=== PATIENT | female | born 1985 | race Caucasian/White ===

== ENCOUNTER → 2023-07-06 10:59 | Outpatient (REF) | payer OTHER, SELFPAY | LOC: PNTC 10:59 | PROVIDERS: ATTENDING PHYSICIAN Obstetrics & Gynecology | DX: O09.529 Supervision of elderly multigravida, unspecified trimester (principal); O34.219 Maternal care for unspecified type scar from previous cesarean delivery | CPT/HCPCS: 76811; 93976 ==

== ENCOUNTER → 2023-08-31 10:55 | Outpatient (REF) | payer OTHER, SELFPAY | LOC: PNTC 10:55 | PROVIDERS: ATTENDING PHYSICIAN Obstetrics & Gynecology | DX: O09.529 Supervision of elderly multigravida, unspecified trimester (principal); O34.219 Maternal care for unspecified type scar from previous cesarean delivery | CPT/HCPCS: 76816 ==

== ENCOUNTER → 2023-09-14 10:00 | Outpatient (REF) | payer OTHER, SELFPAY ==
--- NOTE | 2023-09-14 10:09 | PN.DIAED06 ---
Meal Plan - Gestational
- Breakfast
Gestational Diabetes Meal Plan Name: 1800 calories
Breakfast - Total Carbohydrate (grams): 30
Breakfast - Starch Carbohydrate: 1
Breakfast - Fruit Carbohydrate: 0
Breakfast - Milk Carbohydrate: 1
Breakfast - Nonstarchy Vegetables: Yes
Breakfast - Meat/Protein: 1
Breakfast - Fat: 2
- Morning Snack
Morning Snack - Total Carbohydrate (grams): 30
Morning Snack - Starch Carbohydrate: 1
Morning Snack - Fruit Carbohydrate: 0
Morning Snack - Milk Carbohydrate: 1
Morning Snack - Nonstarchy Vegetables: Yes
Morning Snack - Meat/Protein: 0.5
Morning Snack - Fat: 0
- Lunch
Lunch - Total Carbohydrate (grams): 45
Lunch - Starch Carbohydrate: 2
Lunch - Fruit Carbohydrate: 1
Lunch - Milk Carbohydrate: 0
Lunch - Nonstarchy Vegetables: Yes
Lunch - Meat/Protein: 2
Lunch - Fat: 1
- Afternoon Snack
Afternoon Snack - Total Carbohydrate (grams): 30
Afternoon Snack - Starch Carbohydrate: 1
Afternoon Snack - Fruit Carbohydrate: 1
Afternoon Snack - Milk Carbohydrate: 0
Afternoon Snack - Nonstarchy Vegetables: Yes
Afternoon Snack - Meat/Protein: 1
Afternoon Snack - Fat: 0
- Dinner
Dinner - Total Carbohydrate (grams): 45
Dinner - Starch Carbohydrate: 2
Dinner - Fruit Carbohydrate: 0
Dinner - Milk Carbohydrate: 1
Dinner - Nonstarchy Vegetables: Yes
Dinner - Meat/Protein: 2
Dinner - Fat: 2
- Evening Snack
Evening Snack - Total Carbohydrate (grams): 30
Evening Snack - Starch Carbohydrate: 1
Evening Snack - Fruit Carbohydrate: 0
Evening Snack - Milk Carbohydrate: 1
Evening Snack - Nonstarchy Vegetables: Yes
Evening Snack - Meat/Protein: 1
Evening Snack - Fat: 1
--- NOTE | 2023-09-14 11:42 | PN.DIAED02 ---
Referral
DSME Class Series Code: GDM
Referred For: Gestational Diabetes Self-Management Training, Management of Diabetes During , Medical Nutrition Therapy, Self-Blood Glucose Monitoring
PHI Release Authorization Form Signed: Yes
Patient Problems:
Current Active Problems
Problem Status Onset
Gestational diabetes mellitus in , unspecified control
Demographic
(1) Gestational diabetes mellitus in , unspecified control
Status: Acute Code(s): O24.419 - Gestational diabetes mellitus in , unspecified control
Patient's primary language-: Setswana
Self-Care
- Tobacco Usage
Do you now, or have you ever smoked?: Never smoked
- Alcohol & Drugs Usage
Drinks Alcohol: No
Uses Recreational Drugs: No
Care Plan
- Education Needs
Patient Education Needs: Nutritional management, Preconception care//gestational diabetes management
Recommended Diabetes Training Program based on assessment: Gestational Diabetes Management
- Plan of Care
Plan of Care:
Met with Ms. Shetty today, , currently at 30 weeks of gestation, here today for medical nutrition therapy.
Rika reports that she has had 2 successful pregnancies without GDM. Explained to Rika glucose metabolism in body and what occurs in the body during to cause increase blood sugar. Discussed importance of keeping BS well controlled
to avoid complications to the baby during and after (macrosomia, hypoglycemia). Explained to her that she is at increased risk of developing T2DM in the future.
Provided with Contour Next Ez glucometer, and instructed on proper testing technique, testing sites and testing pattern. She is aware to test FBS and 2 hr pp each meal. Expected results for FBS <95 mg/dl and 2 hr pp <120 mg/dl. Noted for blood sugar
of 87 2 hrs after breakfast. A Log sheet was provided to her to record glucose results, she will send a 4 day meal log with all her FBG and 2hr Post prandial glucose numbers to this office for review. In addition, she will send all her glucose
readings to Glenna at [facility] every Monday.
Explained macronutrients and the effect each has on blood sugar. Provided with 1800 lavelle GDM meal plan. Rika has a good understanding of healthy nutrition, reports that she does not eat much red meat and has started cutting down her portion sizes
since becoming aware of GDM. She has been educated on how to read a nutritional fact label and look at total CHO in relation to serving size. No fruit or fruit juice until noontime. Provided with handout on snacks as well as 'Choose Your Foods'
booklet. She does not exercise, so encouraged exercise and increase physical activity to stay active during . She was encouraged to reach out should she have any questions or require insulin as her progresses.
== END ==
LOC: DES 10:00
PROVIDERS: ATTENDING PHYSICIAN Obstetrics & Gynecology
DX: O24.419 Gestational diabetes mellitus in pregnancy, unspecified control (principal)
CPT/HCPCS: 99078

== ENCOUNTER → 2023-09-27 11:59 | Outpatient (REF) | payer OTHER, SELFPAY | LOC: PNTC 11:59 | PROVIDERS: ATTENDING PHYSICIAN Obstetrics & Gynecology | DX: O24.419 Gestational diabetes mellitus in pregnancy, unspecified control (principal) | CPT/HCPCS: 76816 ==

== ENCOUNTER → 2023-10-25 11:28 | Outpatient (REF) | payer OTHER, SELFPAY | LOC: PNTC 11:28 | PROVIDERS: ATTENDING PHYSICIAN Obstetrics & Gynecology | DX: O24.419 Gestational diabetes mellitus in pregnancy, unspecified control (principal); O40.3XX0 Polyhydramnios, third trimester, not applicable or unspecified; O09.523 Supervision of elderly multigravida, third trimester | CPT/HCPCS: 59025; 76816 ==

== ENCOUNTER → 2023-11-02 13:39 | Outpatient (REF) | payer OTHER, SELFPAY | LOC: PNTC 13:39 | PROVIDERS: ATTENDING PHYSICIAN Obstetrics & Gynecology | DX: O24.419 Gestational diabetes mellitus in pregnancy, unspecified control (principal); O33.5XX0 Maternal care for disproportion due to unusually large fetus, not applicable or unspecified; O40.9 Polyhydramnios, unspecified trimester | CPT/HCPCS: 76815 ==

== ENCOUNTER → 2023-11-09 11:42 | Outpatient (REF) | payer OTHER, SELFPAY | LOC: PNTC 11:42 | PROVIDERS: ATTENDING PHYSICIAN Obstetrics & Gynecology | DX: O24.419 Gestational diabetes mellitus in pregnancy, unspecified control (principal); O33.5XX0 Maternal care for disproportion due to unusually large fetus, not applicable or unspecified; O40.9 Polyhydramnios, unspecified trimester | CPT/HCPCS: 36415; 59025; 76815 ==

== ENCOUNTER 2023-11-13 06:11 | Inpatient (IN) | payer OTHER, SELFPAY ==
[2023-11-13 06:15] VITALS: BMI 32.4
[2023-11-13 06:22] VITALS: BP 114/78
[2023-11-13] MEDS: LR 1000 IV (06:30)
[2023-11-13 06:52] LABS: Hematocrit 38.3 % (37.0-47.0); Hemoglobin 12.9 g/dL (12.0-16.0); Mean Corp Hgb Conc. 33.7 g/dL (33.0-37.0); Mean Corpuscular Hgb 26.9 pg (27.0-31.0); Mean Corpuscular Volume 79.8 fL (81.0-99.0); Mean Platelet Volume 11.5 fL (7.4-10.4); Platelet Count 213 10^3/uL (130-400); Red Cell Dist. Width 14.2 % (11.5-14.5); White Blood Cell Count 9.6 10^3/uL (4.8-10.8)
[2023-11-13] MEDS: ANCEF 10 IV (07:09)
[2023-11-13] MEDS: TYLENOL 1000 MG PO (07:09)
[2023-11-13] MEDS: BICITRA 30 ML PO (07:09)
[2023-11-13] MEDS: ZOFRAN 4 MG IV ×2 (10:35→16:12)
[2023-11-13] MEDS: MORPHINE SULFATE 2 MG IV (11:37)
[2023-11-13] MEDS: TORADOL 15 MG IV ×2 (14:27→20:16)
[2023-11-13] MEDS: MYLICON 80 MG PO (20:53)
[2023-11-14] MEDS: FLUSH (NSS) 3 FLUSH IV (01:59)
[2023-11-14] MEDS: TORADOL 15 MG IV ×2 (01:59→07:51)
[2023-11-14 05:39] LABS: Hemoglobin 10.4 g/dL (12.0-16.0); Mean Corp Hgb Conc. 33.5 g/dL (33.0-37.0); Mean Corpuscular Hgb 26.9 pg (27.0-31.0); Mean Corpuscular Volume 80.3 fL (81.0-99.0); Mean Platelet Volume 11.2 fL (7.4-10.4); Platelet Count 188 10^3/uL (130-400); Red Blood Cell Count 3.86 10^6/uL (4.20-5.40); Red Cell Dist. Width 14.4 % (11.5-14.5); White Blood Cell Count 11.9 10^3/uL (4.8-10.8)
--- NOTE | 2023-11-14 07:37 | W.PN.ANS.POP ---
Anesthesia Post Operative
- Anesthesia Post Op Note
Vital Signs Stable-See Nursing Note: Yes
Airway Patent: Yes
Adequate Pain Control: Yes
Change in Mental Status: No
Current Postoperative Nausea & Vomiting: No
Anesthesia Complications: No
General Anesthetic Recall: No
Unplanned Admission: No
Post Op Hydration Adequate: Yes
[2023-11-14] MEDS: PRENATAL PLUS 1 TABLET PO (07:53)
[2023-11-14] MEDS: SENOKOT-S 1 TABLET PO (13:45)
[2023-11-14] MEDS: TYLENOL 650 MG PO ×2 (13:45→20:11)
[2023-11-14] MEDS: MOTRIN 600 MG PO ×2 (13:45→20:11)
[2023-11-14 15:45] LABS: Syphilis/T. pallidum Ab Reflex Negative (Negative)
[2023-11-15] MEDS: MOTRIN 600 MG PO ×4 (02:16→23:33)
[2023-11-15] MEDS: TYLENOL 650 MG PO ×4 (02:16→23:33)
[2023-11-15] MEDS: PRENATAL PLUS 1 TABLET PO (10:25)
[2023-11-15] MEDS: SENOKOT-S 1 TABLET PO (10:25)
[2023-11-16] MEDS: SENOKOT-S 1 TABLET PO (08:42)
[2023-11-16] MEDS: MYLICON 80 MG PO (08:42)
[2023-11-16] MEDS: PRENATAL PLUS 1 TABLET PO (08:42)
[2023-11-16] MEDS: TYLENOL 650 MG PO ×2 (08:43→18:24)
[2023-11-16] MEDS: MOTRIN 600 MG PO ×2 (08:43→18:24)
--- NOTE | 2023-11-16 16:24 | W.DS.TRANS ---
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
-
Discharge Instructions:
Discharge Diagnosis/Procedures term delivered by section
Diet Regular
Activity No strenuous activity
Driving Restrictions No driving for 2 weeks
Bathing Restrictions OK to Shower
Instructions:
Stand-Alone Forms: LDRP Delivery
Changes to Home Medications: No
Discharge Medications:
DC Medications w/original date entered in [facility]
vit no.95-ferrous fumarate 28 mg-folic acid 800 mcg tablet () 1 ea PO DAILY Supplement 12/23/20
acetaminophen 325 mg tablet 650 mg (2 x 325 mg) PO Q4HPRN PRN mild pain #0 tabs 11/15/23
ibuprofen 600 mg tablet 600 mg PO Q6HPRN PRN cramps #30 tabs 11/15/23
sennosides 8.6 mg-docusate sodium 50 mg tablet (Stool Softener-Laxative) 1 tab PO DAILYPRN PRN constipation #0 tabs 11/15/23
simethicone 80 mg chewable tablet 80 mg PO TIDPRN PRN flatulence #0 tabs 11/15/23
oxycodone 5 mg tablet 5 mg PO Q6H PRN severe pain #10 tabs 11/16/23
Home Medication Changes
Pending Results: No
Total time spent discharging patient (in min): 25
== END 2023-11-16 18:42 | disposition home or self-care (01) | DRG 788 ==
LOC: LDRP 06:11
PROVIDERS: ADMITTING PHYSICIAN Obstetrics & Gynecology
PROC: 10D00Z1 Extraction of Products of Conception, Low, Open Approach (ICD-10-PCS; 2023-11-13)
DX: O34.211 Maternal care for low transverse scar from previous cesarean delivery (principal); N85.8 Other specified noninflammatory disorders of uterus; Z3A.39 39 weeks gestation of pregnancy; Z37.0 Single live birth
CPT/HCPCS: 85027; 86780; 86850; 86900; 86901